=== PATIENT | female | born 1950 | race Caucasian/White ===

== ENCOUNTER 2024-12-20 22:57 | Inpatient (IN) | payer MEDICARE, SELFPAY ==
[2024-12-20] VITALS (13 sets, daily range): BP systolic 123–178; BP diastolic 63–108
--- NOTE | 2024-12-20 19:51 | ED.GENMED ---
History of Present Illness
General
Chief Complaint: Breathing Problem
Source: patient and ambulance crew
Time Seen by Provider: 12/20/24 19:50
History of Present Illness
History of Present Illness:
74-year-old female presents the emergency department in respiratory distress. She reportedly was at a restaurant with her , had not yet had anything to eat, did not have any episodes of choking or coughing, but began to feel suddenly short
of breath. I got a call from the medics on transport here and they reported that despite placing the patient on a nonrebreather and giving her DuoNebs, her maximum pulse ox was 86%. They requested permission to give Decadron which I granted
however ultimately it was not given on transport. EKG was transmitted to us, not consistent with NSTEMI. Upon arrival, patient is in moderate respiratory distress with tachypnea. History is limited from her but she specifically denies pain
including chest pain.
Past History
Past History
ED Past Medical History: None
ED Past Surgical History: None
Social History
Tobacco: Smoker
Alcohol: None
Drug: None
Personal:
Living: with family
Phy Exam
Physical Exam
Physical Exam:
GENERAL: Alert , in no apparent distress
EYE: pupils equal and reactive
NECK: Supple, no significant adenopathy.
ENT: o/p clr, mmm, no stridor/drool. no lip/tongue swelling.
CARDIAC: Regular rate and rhythm, tachycardic .
LUNGS: Equal breath sounds bilaterally,diffuse wheezing, no rhonchi/rales
ABDOMEN: Soft, without focal tenderness, no r/g
NEUROLOGICAL: Alert and oriented, no focal neuro deficits
SKIN: Warm and dry, skin intact.
MUSCULOSKELETAL: No edema, well perfused.
PSYCH: anxious
Scores
Heart Failure Risk
Heart Failure Risk Score: Not Applicable
Sepsis
Sepsis Screening
Sepsis Assessment: Sepsis Ruled Out
Sepsis Screen
Sepsis Screen: Sepsis Ruled Out
Date: 12/20/24
Time: 22:10
Course
Orders/Labs/Results
Orders:
Orders
12/20/24 19:46
Electrocardiogram (*1) Urgent
Reason for Study: Other
Other Reason for Exam: Respiratory Distress
Cardiac Monitoring- Treatment ONCE
EKG- Treatment ONCE
O2 Therapy [RESP] Urgent
Titrate/Wean O2 to maintain O2 sat greater than (%): 93
Special Instructions: TO MAINTAIN CONTINUOUS O2 SATS >/= 93%
Pulse Ox/cont/shift [RESP] Urgent
Quantity: 1
Special Instructions: continuous pulse ox
12/20/24 19:47
CR Chest Portable - 1 View Urgent
Comment:
Reason For Exam: respiratory distress
Reason Study Needs to be Portable: Patient Unstable
12/20/24 19:49
Dexamethasone Sod Phosphate [Decadron] 20 mg .ROUTE .STK-MED ONE
EPINEPHrine PF [Adrenalin] 1 mg .ROUTE .STK-MED ONE
12/20/24 19:50
Albuterol Sulfate [Ventolin Nebules] 7.5 mg INH R NOW STA
Dexamethasone Sod Phosphate [Decadron] 10 mg IV NOW STA
12/20/24 19:51
Complete Blood Count/With Diff Urgent
Comprehensive Metabolic Panel Urgent
NT-proBNP Urgent
Troponin I Urgent
12/20/24 20:25
Lactic Acid Q4H
Comment: CANCEL 2nd LACTIC ACID IF 1st LACTIC ACID IS LESS THAN 2
Blood Culture Q30M
ANNE MARIE Source: Blood/Venous
Specimen Description:
Blood Culture Q30M
ANNE MARIE Source: Blood/Venous
Specimen Description:
12/20/24 20:58
CT Chest PE Study Urgent
Comment:
Reason For Exam: resp distress
12/20/24 21:00
Aspirin 325 mg PO NOW STA
Furosemide [Lasix] 40 mg IV NOW STA
12/20/24 21:58
COVID-19 Antigen Stat
Source: Nasal Swab
Troponin I Stat
Influenza A+B Rapid Molecular Stat
ANNE MARIE Source: Nasal Swab
Specimen Description:
12/21/24 00:00
Lactic Acid Q4H
Comment: CANCEL 2nd LACTIC ACID IF 1st LACTIC ACID IS LESS THAN 2
Abnormal Lab Results
12/20/24 12/20/24
19:51 20:25
WBC 14.7 H 10^3/uL
(4.8-10.8)
RBC 3.75 L 10^6/uL
(4.20-5.40)
Hgb 11.5 L g/dL
(12.0-16.0)
Hct 34.8 L %
(37.0-47.0)
RDW 15.2 H %
(11.5-14.5)
MPV 11.1 H fL
(7.4-10.4)
Abs Immat Gran (auto) 0.1 H 10^3/uL
(0-0.05)
Absolute Neuts (auto) 6.7 H 10^3/uL
(1.4-6.5)
Absolute Lymphs (auto) 6.9 H 10^3/uL
(1.2-3.4)
Absolute Monos (auto) 0.8 H 10^3/uL
(0.1-0.6)
Carbon Dioxide 16 L mmol/L
(22-30)
BUN 20 H mg/dl
(7-17)
Glucose 363 H mg/dl
(70-99)
Lactic Acid 2.8 H mmol/L
(0.7-2.0)
Troponin I 0.045 H* ng/ml
12/20/24 19:51
12/20/24 19:51
Vital Signs
Initial and Last Documented VS:
Initial Vital Signs
Temp Pulse Resp BP Pulse Ox
98.4 F 126 30 162/92 96
12/20/24 20:01 12/20/24 20:01 12/20/24 20:01 12/20/24 20:01 12/20/24 20:01
Last Documented Vital Signs
Temp Pulse Resp BP Pulse Ox
98.4 F 122 30 165/77 96
12/20/24 20:01 12/20/24 21:56 12/20/24 20:01 12/20/24 21:56 12/20/24 20:01
*Critical Care Note
Total Time (30-74mins, 75-104mins- exclusive of procedures): 36
Update Note
Update Note:
Patient presents to the Emergency Department with resp distress
Number and Complexity of Problems Addressed at the Encounter
� Chronic conditions affecting care:
� Acute Exacerbation and/or Progression of Chronic Illness:
� Differential Diagnosis includes:but not limited to status ashtmaticus, allergic reaction, pna, pe, COPD exacerbation, acs etc etc.
Amount and/or Complexity of Data to be Reviewed and Analyzed
� I performed an independent evaluation of and my interpretation is:
EKG: Read by me, sinus tachycardia with PVCs, right bundle branch block, nonspecific ST abnormalities
CT:1. No evidence of pulmonary embolism.
2. There are small bilateral pleural effusions, more pronounced on the right. There is ground glass opacities with interlobular septal thickening and areas of confluent airspace disease which is favored to represent severe atelectasis/edema, less
likely multifocal pneumonia.
3. Moderate coronary artery calcifications
Xrays: Suspect pulmonary edema
Laboratory Studies: Elevated BNP, indeterminant troponin elevation, nonspecific leukocytosis although patient does not have signs to suggest infectious process, chills, cough, sore throat, rhinorrhea, etc. Mild anemia
Other:
� Review of other/old records reveals: None available
� Clinical information was obtained by an independent historian:
� Prescriptions/Medications Considered but not given:
� Further testing considered but not performed:
Risk of Complications and/or Morbidity or Mortality of Patient Management
� Social determinants of health affecting care:
� Discussion with other providers (PCP, Hospitalists, Consultants, etc):
� Escalation of care including admission/observation vs risk of discharge considered: Pt met by myself, RN's and resp tech upon arrival, bipap immeidately placed, pox 91% (improvement).
8:11 PM repeat assessment pulse ox is 96% on BiPAP patient is obviously much more comfortable, making jokes with me, etc. Diffuse wheezing persists. Will continue treatment while awaiting results of workup. Patient aware that she will be admitted
to the hospital.
9:01 PM boyfriend and son now at bedside. They states she was her usual self all day today. She was complaining of some mild back discomfort while in the car now since resolved. Then, upon arrival to the restaurant, patient became extremely
anxious associated with severe dyspnea and asked 911 to be called which is unusual for her. Patient is remarkably improved. Pulse ox is normal, mild sinus tachycardia, on repeat lung exam, wheezing diminished, appreciate bibasilar Rales. Suspect
pulmonary edema as etiology for her symptoms. Again denies chest pain, EKG does not show acute ischemic changes. Aspirin and Lasix ordered.
ED Attending Note
-
Portions of this chart may have been created with voice recognition software.� Occasional wrong word or��sound alike� substitutions may have occurred due to the inherent limitations of voice recognition software.
Discharge Plan
Departure
Patient Disposition: Admit
Date of Disposition: 12/20/24
Time of Disposition: 21:55
Admit to: Telemetry
Presentation/result/management discussed w/ accepting MD/DO: Hospitalist
Condition: Good
Discharge Problem:
Acute respiratory distress
Referrals:
Josue,Desmond J. Jr., DO [Family Provider] -
Interventions
Interventions:
*Risk Screen - Suicide Last Done: 12/20/24 20:01
*General Assessment Last Done: 12/20/24 20:01
*Neglect/Abuse Screening Last Done: 12/20/24 20:01
*ED- Fall Risk Assessment Last Done: 12/20/24 20:01
*ED COVID-19 Vaccine History Last Done: 12/20/24 20:01
Discharge Date and Time
Print Language: ALBANIAN
[2024-12-20] MEDS: DECADRON 10 MG IV (19:55)
[2024-12-20 20:13] LABS: ALT (SGPT) 16 U/L (0-35); AST (SGOT) 20 U/L (14-36); Albumin 4.2 g/dl (3.5-5.0); Alkaline Phosphatase 118 U/L (38-126); Blood Urea Nitrogen 20 mg/dl (7-17); Calcium 9.2 mg/dl (8.4-10.2); Carbon Dioxide 16 mmol/L (22-30); Chloride 105 mmol/L (98-107); Estimated Creatinine Clearance 66 ml/min; Glucose 363 mg/dl (70-99); Potassium 3.9 mmol/L (3.5-5.1); Sodium 137 mmol/L (135-145); Total Bilirubin 0.5 mg/dl (0.2-1.3); Total Protein 6.8 g/dl (6.3-8.2); eGFR > 60.00
[2024-12-20 20:27] LABS: Troponin I 0.045 ng/ml
[2024-12-20 20:30] LABS: % Basophils 0.5 % (0-2); % Eosinophils 1.2 % (0-6); % Immature Granulocytes 0.5 % (0-0.5); % Lymphocytes 47.1 % (20.5-51.1); % Monocytes 5.1 % (1.7-9.3); % Neutrophils 45.6 % (42.2-75.2); Absolute Basophils 0.1 10^3/uL (0-0.2); Absolute Eosinophils 0.2 10^3/uL (0-0.7); Absolute Immature Granulocytes 0.1 10^3/uL (0-0.05); Absolute Lymphocytes 6.9 10^3/uL (1.2-3.4); Absolute Monocytes 0.8 10^3/uL (0.1-0.6); Absolute Neutrophils 6.7 10^3/uL (1.4-6.5); Hematocrit 34.8 % (37.0-47.0); Hemoglobin 11.5 g/dL (12.0-16.0); Mean Corpuscular Hgb 30.7 pg (27.0-31.0); Mean Corpuscular Volume 92.8 fL (81.0-99.0); Mean Platelet Volume 11.1 fL (7.4-10.4); Nucleated Red Blood Cells % 0.2 %; Platelet Count 400 10^3/uL (130-400); Red Blood Cell Count 3.75 10^6/uL (4.20-5.40); Red Cell Dist. Width 15.2 % (11.5-14.5); White Blood Cell Count 14.7 10^3/uL (4.8-10.8)
[2024-12-20 20:44] LABS: NT-proBNP 5760 pg/ml
[2024-12-20 20:44] LABS: Lactic Acid 2.8 mmol/L (0.7-2.0)
[2024-12-20] MEDS: VENTOLIN NEBULES 7.5 MG INH (21:55)
[2024-12-20] MEDS: LASIX 40 MG IV (21:56)
[2024-12-20] MEDS: ASPIRIN 325 MG PO (21:56)
--- NOTE | 2024-12-20 22:07 | HPS.HSE ---
Family Physician
-
Family Physician: Desmond Salas
Chief Complaint
-
Acute shortness of breath shortness of breath shortness of breath
History of Present Illness
This is a 74-year-old with history of smoking and anxiety who presents to the emergency department with acute onset shortness of breath that started around 7 PM today.
Patient currently had a fall and back injury 2 weeks ago. This did not result in any significant mobility function. She was not hospitalized. She had no fractures and she was not immobilized. She has no recent travels. She denies any sick
contact. She has had no recent cough cold or flulike symptoms. She denies any lower extremity pain tenderness or swelling. She denies any redness in the lower extremities.
She denies any recent weight gain or weight loss. She denies any recent episodes of chest pain or shortness of breath. She denies exertional chest dyspnea at rest.
Apparently she was going to the night around 7 PM when she suddenly felt severely short of breath and nauseous but she did not vomit. She did not have any chest pain. She said her heart was racing but denied feeling dizzy or lightheaded.
She denies any prior history of CAD. Denies history of diabetes.
On arrival in the emergency department she was hypoxic with oxygen saturation of 86% on nonrebreather. She was immediately placed on BiPAP. Blood pressure was 162/92, pulse was 126, temp 98.4, current oxygen saturation 98% on 100% BiPAP.
Chest x-ray showed pulmonary edema to me. Troponin was elevated at 0.045, BNP was 5700.
White count was 14.7, hemoglobin and platelets were normal. Electrolytes were stable except for CO2 of 16 BUN and creatinine were normal at 20 and 0.8. Glucose was 363.
CT PE
IMPRESSION:
1. No evidence of pulmonary embolism.
2. There are small bilateral pleural effusions, more pronounced on the right. There is ground glass opacities with interlobular septal thickening and areas of confluent airspace disease which is favored to represent severe atelectasis/edema, less
likely multifocal pneumonia.
3. Moderate coronary artery calcifications
Medical History
Past Medical History
Past Medical History: Reports Psychiatric (Anxiety)
Past Surgical History: Reports None
Social History
Tobacco: Smoker
Alcohol: None
Drug: None
Personal: Partner
Living: With Family
Employment: Employed
Family History
Family History: Not pertinent
Allergies / Home Medications
Allergies reflects when Allergies were last updated in [facility].
Home Medications with original date entered in [facility]
Allergy/Medication List:
Allergies
Allergy/AdvReac Type Severity Reaction Status Date / Time
No Known Allergies Allergy Unverified 12/20/24 19:50
Review of Systems
-
History Source: Patient and Family
Constitutional: Reports No Symptoms
EENT: Reports No Symptoms
Respiratory: Reports Trouble Breathing
Cardiac: Reports No Symptoms
Abdomen/GI: Reports No Symptoms
: Reports No Symptoms
Musculoskeletal: Reports No Symptoms
Skin: Reports No Symptoms
Neurological: Reports No Symptoms
Endocrine: Reports No Symptoms
Hematologic/Lymphatic: Reports No Symptoms
Psych: Reports No Symptoms
Physical Exam
Vital Signs
Vital Signs
Temp Pulse Resp BP Pulse Ox
98.4 F 122 30 165/77 96
12/20/24 20:01 12/20/24 21:56 12/20/24 20:01 12/20/24 21:56 12/20/24 20:01
Physical Exam
General: Respiratory Distress
HEENT: NormoCephalic, Anicteric, Moist mucous membranes, Atraumatic, PERRLA and Oxygen
Respiratory: Rales and Crackles; No Wheezes
Cardiac: S1/S2 and Tachycardia
Breast: Deferred by me
GI: Soft, Non Tender, Non Distended and Normal Bowel Sounds
Rectal: Deferred by Provider
Genito-urinary: Deferred by me
Musculoskeletal: No Clubbing, No Cyanosis and No Edema
Neuro: AO x 3 and Nonfocal/grossly intact
Hematologic/Lymphatic: No Lymphadenopathy
Psych: Calm
Laboratory Results
-
12/20/24 19:51
12/20/24 19:51
Laboratory Results
Lactic Acid 2.8 mmol/L (0.7-2.0) H 12/20/24 20:25
Total Bilirubin 0.5 mg/dl (0.2-1.3) 12/20/24 19:51
AST 20 U/L (14-36) 12/20/24:
ALT 16 U/L (0-35) 12/20/24 19:51
Alkaline Phosphatase 118 U/L (38-126) 12/20/24 19:51
Troponin I 0.045 ng/ml H* 12/20/24 19:51
Data Reviewed
-
Diagnostic Radiology: Image Personally Visualized and interpreted
CT Scan: Report Reviewed by me
Medical Tests (Nuc Med, Echo, EKG etc): Image Personally Visualized and interpreted
Lab Data: Labs Reviewed by me
Impression/Plan
-
IMPRESSION:
74-year-old with history of anxiety and tobacco smoking presenting to the emergency department with acute shortness of breath and severe hypoxia requiring noninvasive positive pressure ventilation at 100% FiO2 currently satting 99%. Chest x-ray
shows pulmonary edema with trace effusion. She has no known history of CHF but BNP is elevated to 5700, troponin was 0.045. No chest pain currently and ECG is nonischemic. The very acute onset of symptoms are concerning for ischemic event. She
has a CT PE pending at this time. She improved markedly with BiPAP. Given elevated BNP and pulmonary edema concerning for flash pulmonary edema but the etiology is unclear at this time. There has been no antecedent cough wheezing shortness of
breath fevers or chills to suggest an acute infection.
PLAN:
1. Hypoxic respiratory distress - Suspect new onset CHF. No signs of acute infection
- admit to IMU
- start lasix 40 iv q 12
- CT PE negative for PE
- trending troponins, if rapid rise, will start heparin/asa for ACS/NSTEMI.
- If BP rises, will start nitroglycerin gtt
- continue bipap overnight
- echo in am for wall motion, valve and ef evaluation
- check viral panel
- holding abx for now
- will treat empirically with nebs for now, if not improved with diuresis consider inflammatory ggo and start prednisone and consult pulm
- hyperglycemia no knonw h/o HD, aspart achs for now, a1c in am
- cardiology consultation
[2024-12-20 22:32] LABS: COVID-19 Antigen Negative (Negative)
[2024-12-20 22:40] LABS: Troponin I 0.716 ng/ml
[2024-12-20 23:45] LABS: Procalcitonin 0.05 ng/ml (0.0-0.25)
[2024-12-21] VITALS (21 sets, daily range): BP systolic 80–177; BP diastolic 50–155; BMI 28.1
[2024-12-21] MEDS: HEPARIN 25000 UNITS/250 ML IV (00:42)
--- NOTE | 2024-12-21 01:24 | PTCARENOTE ---
Received pt from ED RN. Pt is AAOx3. Sinus tach on the monitor. Pt brought up on bipap, O2 sat 95%. RT removed bipap and placed pt on 3L NC O2 sat 93%, lungs coarse/diminished. Pw in place, education provided, this RN stated we can take the pw out
and walk to the BR, pt would like to keep pw in overnight. Labs and Heparin gtt started at 1000 units/hr (see worklist). CHG bath provided. Family at bedside. Call pitts in reach. Safe environment maintained.
[2024-12-21 01:26] LABS: APTT 24.4 Sec (23.4-35.0)
[2024-12-21 01:30] LABS: Lactic Acid 2.3 mmol/L (0.7-2.0)
[2024-12-21 01:32] LABS: Hematocrit 30.1 % (37.0-47.0); Hemoglobin 10.6 g/dL (12.0-16.0); Mean Corp Hgb Conc. 35.2 g/dL (33.0-37.0); Mean Corpuscular Hgb 31.5 pg (27.0-31.0); Mean Corpuscular Volume 89.3 fL (81.0-99.0); Mean Platelet Volume 11.4 fL (7.4-10.4); Platelet Count 251 10^3/uL (130-400); Red Blood Cell Count 3.37 10^6/uL (4.20-5.40); White Blood Cell Count 17.5 10^3/uL (4.8-10.8)
[2024-12-21 05:33] LABS: Lactic Acid 1.1 mmol/L (0.7-2.0)
[2024-12-21 05:37] LABS: APTT 49.6 Sec (23.4-35.0)
[2024-12-21 05:40] LABS: Hematocrit 29.5 % (37.0-47.0); Hemoglobin 10.5 g/dL (12.0-16.0); Mean Corp Hgb Conc. 35.6 g/dL (33.0-37.0); Mean Corpuscular Hgb 31.2 pg (27.0-31.0); Mean Corpuscular Volume 87.5 fL (81.0-99.0); Mean Platelet Volume 11.5 fL (7.4-10.4); Platelet Count 275 10^3/uL (130-400); Red Blood Cell Count 3.37 10^6/uL (4.20-5.40); Red Cell Dist. Width 14.8 % (11.5-14.5); White Blood Cell Count 13.1 10^3/uL (4.8-10.8)
[2024-12-21 05:59] LABS: Blood Urea Nitrogen 20 mg/dl (7-17); Calcium 9.4 mg/dl (8.4-10.2); Carbon Dioxide 21 mmol/L (22-30); Chloride 110 mmol/L (98-107); Estimated Creatinine Clearance 86 ml/min; Glucose 141 mg/dl (70-99); HDL Cholesterol 58 mg/dl; LDL Cholesterol, Calculated 163 mg/dl; Magnesium 1.9 mg/dl (1.6-2.3); Phosphorus 4.4 mg/dl (2.5-4.5); Potassium 4.5 mmol/L (3.5-5.1); Sodium 139 mmol/L (135-145); Total Cholesterol 232 mg/dl (50-199); Triglyceride 55 mg/dl (10-149); Very Low Density Lipoprotein 11 mg/dl (0-30); eGFR > 60.00
[2024-12-21 06:30] LABS: TSH Reflex To Free T4 1.48 uIU/ml (0.47-4.68)
[2024-12-21 07:55] LABS: Glucose - Point of Care 127 mg/dl (70-99)
[2024-12-21] MEDS: NOVOLOG FLEXPEN-LOW RESISTANCE SC ×2 (08:21→12:36)
[2024-12-21] MEDS: DUONEB 3 ML INH ×2 (08:22→15:58)
--- NOTE | 2024-12-21 08:45 | W.PN.HOSP.TC ---
Today's Communication/Plan
-
transfer to IVU
await cards
cont diuresis
needs ECHO/cardiac cath
renew IV heparin
start asa/statin
Assessment / Plan
Assessment / Plan
pt is a 74 year old female
Hypoxic respiratory distress--Suspect new onset CHF, type unknown-- doubt infection--transfer to IVU--cont IV lasix, may need to increase dose as still with crackles on exam--CT scan neg for PE--await cards--needs echo/cardiac cath
presumed NSTEMI--troponins rising (0.045, 0.71, 16.9)--have not peaked yet--cont to trend-- IV heparin--will need echo and cath--await cards input
HLD--T chol 232, LDL 163--start statin
lactic acidosis likely due to poor perfusion--do NOT believe septic or infected--no ABX--leukocytosis likely reactive
hyperglycemia-- no hx of DM--check HGB C6T--VBV
anxiety--cont xanax
DVT proph--on IV heparin drip
code status-- FULL CODE
Anticipated Discharge: > 48 hours
Subjective/Interval History
-
Date of Service: December 21, 2024
Patient feeling much improved
a little anxious asking for Xanax
Objective Data
-
Labs:
Laboratory Results
12/21/24 12/21/24 12/21/24
00:36 05:11 05:12
WBC 17.5 H 13.1 H
Hgb 10.6 L 10.5 L
Hct 30.1 L 29.5 L
Plt Count 251 D 275
APTT 24.4 49.6 H
Sodium 139
Potassium 4.5
Chloride 110 H
Carbon Dioxide 21 L
BUN 20 H
Creatinine 0.6
Glucose 141 H
Calcium 9.4
12/21/24 12/21/24
06:50 11:40
WBC
Hgb
Hct
Plt Count
APTT Cancelled Pending
Sodium
Potassium
Chloride
Carbon Dioxide
BUN
Creatinine
Glucose
Calcium
Vital Signs:
max temp for 24 hours
12/21/24
03:30
Temp 98.4 F
Vital Signs
Temp Pulse Resp BP Pulse Ox
97.9 F 115 18 124/101 94
12/21/24 08:20 12/21/24 08:25 12/21/24 08:25 12/21/24 06:00 12/21/24 08:25
I&O
12/20/24 12/21/24 12/22/24
06:59 06:59 06:59
Intake Total 472 / 472
Output Total 550 / 550
Balance -78 / -78
Review of Systems
-
All other systems: Reviewed and negative
Respiratory: Denies Trouble Breathing
Cardiac: Denies Chest Pain
Psych: Reports Anxious
Physical Exam
-
General: Well Developed, Well Nourished and No Apparent Distress
HEENT: Normocephalic and Atraumatic; Negative Oxygen
Respiratory: Crackles (all lung rios)
Cardiac: Regular Rhythm and S1/S2; Negative Murmur
GI: Soft, Nontender, Nondistended and Normal Bowel Sounds
Musculoskeletal: No Clubbing, No Cyanosis and No Edema
Skin: Warm
Neuro: Awake and Alert
Psych: Anxious
--- NOTE | 2024-12-21 09:00 | PTCARENOTE ---
Rec'd pt at 0800 awake alert and oriented resting in bed. Does admit to feeling anxious and states she normally takes Xanax 0.25 mg tid as needed. Denies pain and overall states breathing feels better. Speech is clear. Denies dizziness or headache.
FRIAS. Respirs are overall non-labored on RA with sats of 93%. BS with fine scattered crackles throughout. No cough noted. Monitor ST. VS as documented. + pulses. No edema. Denies chest pain. IV Heparin gtt infusing at 1200 units/hr via R AC IV site.
Capped int intact R forearm. ABd is soft with + BS. Purewick in place and pt voiding yellow urine. Pt able to turn and reposition herself. Plan of care reviewed with pt and s/o. Call pitts in reach. Dr. Dee in to see pt.
--- NOTE | 2024-12-21 09:16 | CON.CAR ---
Addendum entered and electronically signed by Mary Sidhu MD 12/21/24 11:42:
I saw and examined the patient.
The Combination Man's note was reviewed and I agree with the note.
Comment: Patient critically ill with extremis and presented with Heart failure and a acute anteroseptal [place]. Troponins increasing today. Patient currently stable after diuresis, heparin and medical stabilization. Initially required BiPAP.
Reviewed at length with patient, her and her son at the bedside. Emergent echocardiogram also requested. She has multiple cardiovascular risk factors including likely hypertension, diabetes and hyperlipidemia.
According to patient dyspnea on exertion with stuttering for 3 weeks with walking to her car but then worsened on presentation. She is a difficult historian and that she does not offer much about her history. She does not appear to follow
regularly with physicians.
General: Well developed, well nourished in NAD.
Heart: Distant heart sounds 2/6 basal systolic murmur
Lungs: Decreased breath sounds at the bases
Extremities: No clubbing, cyanosis or edema bilaterally.
Neuro: Grossly nonfocal, awake, alert
Impression:
Acute anteroseptal [place]
Heart failure with reduced ejection fraction in the setting of acute coronary event
Aortic valve stenosis likely mild (echo preliminary)
Tobacco use disorder
Hyperlipidemia
Hypertension
Plan:
Initially I saw the patient and discussed hypothetically going to the [facility] today or Monday pending further results of EKG and echocardiogram.
As noted in update note [facility] activated discussed with interventional cardiology
Discussed with physician from primary service and nursing
Telemetry reviewed and stable
EKG yesterday and today independently reviewed by me
Labs reviewed
Continue IV heparin
Continue Lasix
Await echocardiogram for further treatment of heart failure
Smoking cessation is mandatory
All questions from patient's and son answered at the bedside.
35 minutes total critical care time
Original Note:
Consultation
Consultation Request
Date/Time Consultation Performed: 12/21/24
Requesting Provider: Dr. Dee
Performing Provider: Christina Day PA-C for Dr. Mary Sidhu
Reason for Consultation: CHF, NSTEMI
Medical History
-
Chief Complaint: SOB
History of Present Illness:
Patient is a 74-year-old female with past medical history of anxiety and tobacco use who presented to [facility] due to worsening shortness of breath last evening. She states she has noted intermittent dyspnea on exertion for the last
several weeks, which got significantly worse last evening. On arrival she was hypoxic and initially required BiPAP, now weaned. proBNP elevated at 5760 and imaging with evidence of acute heart failure. Initial troponin also elevated at 0.04 now
up to 16.9. No chest pain. EKG ST with concern for possible ST elevation in anterior leads. Chest CT negative for PE but with small B/L pleural effusions and mod coronary calcifications noted.
PMH:
Anxiety
Tobacco use
Past Medical History
Past Medical History: Other (in HPI)
Social History
Tobacco: Smoker
Alcohol: Occasional (several drinks per day on weekend)
Personal:
Living: With Family
Employment: Retired
Family History
Family History: Reviewed & Not Pertinent
Allergies / Home Medications
Allergy/AdvReac Type Severity Reaction Status Date / Time
No Known Allergies Allergy Unverified 12/20/24 19:50
�Medication �Instructions �Recorded �Confirmed �Type
alprazolam 0.25 mg tablet (Xanax) 0.25 mg PO TID PRN anxiety 12/21/24 12/21/24 History
Review of Systems
-
History Source: Patient and Family
All other systems: Negative unless noted
Physical Exam
Vital Signs
Temp Pulse Resp BP Pulse Ox
97.9 F 115 18 124/101 94
12/21/24 08:20 12/21/24 08:25 12/21/24 08:25 12/21/24 06:00 12/21/24 08:25
Lab Results
12/21/24 05:12
12/21/24 05:11
Troponin I 16.900 ng/ml H* D 12/21/24 05:12
Pmc-J-Dovangxzdrr Pept 5760 pg/ml 12/20/24 19:51
Physical Exam
General: No Apparent Distress and Comfortable
HEENT: Normocephalic, Anicteric and Moist Mucous Membranes
Respiratory: Crackles and Non Labored Respirations
Cardiac: S1/S2, Regular Rhythm and Other (tachycardic)
GI: Soft, Non Tender, Non Distended and Normal Bowel Sounds
Musculoskeletal: No Clubbing, No Cyanosis and No Edema
Skin: Warm and Dry
Neuro: AO x 3
Impression / Plan
-
[employer] Special Stocks: none prior to admission
Assessment:
Presentation with SOB
Acute hypoxic respiratory failure, required bipap on arrival
Acute CHF, unknown type
NSTEMI
Lactic acidosis
Hyperglycemia
Anemia
HLD
Anxiety
Tobacco use
ECHO 12/21/24: pending
Plan:
- Patient presented to ER with shortness of breath initially hypoxic and requiring BiPAP
- proBNP 5760. continue diuresis with IV lasix. Cr stable. was not on diuretic prior to admission
- CHF education
- Trops uptrending, most recent 16.9. trend to peak
- No CP
- EKG ST with possible ST elevations noted. repeat EKG now
- check urgent echo, d/w metallurgical technician
- continue IV heparin, asa
- concern for cardiogenic shock with elevated lactic acidosis, sinus tachycardia
- may require urgent cardiac cath
- consider addition of arb vs arni pending EF by echo
- hold off on BB for now, but eventually will start
- LDL 163. start lipitor 80mg QPM
- hgbA1c pending
- work up of anemia per primary service
- advised tobacco cessation, as well as ETOH cessation
- d/w patient and at bedside
Data Reviewed
-
EKG: Tracing Personally Visualized and interpreted
Radiology: Report Reviewed by me
Labs: Labs Reviewed by me
Old Records: Reviewed
[2024-12-21] MEDS: XANAX 0.25 MG PO ×3 (09:22→22:16)
--- NOTE | 2024-12-21 09:30 | PTCARENOTE ---
AM meds including PO Xanax 0.25 mg PO given. Lasix 40 mg IV given as ordered. Ready to eat breakfast. No other changes.
[2024-12-21] MEDS: LOW STRENGTH ASPIRIN 81 MG PO (09:31)
[2024-12-21] MEDS: LASIX 40 MG IV ×3 (09:32→16:10)
--- NOTE | 2024-12-21 10:02 | PTCARENOTE ---
Ate some breakfast. No complaints currently. States that she feels like the Xanax is working. ECG done and Dr. Sidhu in to see pt. VS as documented.
[2024-12-21 10:15] LABS: Iron 51 ug/dl (37-170)
[2024-12-21 10:19] LABS: Reticulocyte Count 2.5 % (0.4-2.8)
[2024-12-21 10:25] LABS: Percent Saturation 14 % (20-50); Total Iron Binding Capacity 343 ug/dl (265-497)
--- NOTE | 2024-12-21 11:00 | PTCARENOTE ---
Sats at times running 88-90% on RA- No complaints from pt. Placed on 1l nc with sats up to 94%
--- NOTE | 2024-12-21 11:07 | PTCARENOTE ---
ECHO being done currently. No other changes. States she feels more relaxed
--- NOTE | 2024-12-21 11:42 | W.PN.UPDATE ---
Update Note
Progress Note Update
Once again went to patient's bedside. Echocardiogram tech at bedside. Reviewed preliminary images of echocardiogram at bedside with LAD wall motion abnormality and ejection fraction likely significantly depressed at 35%.
Await full echo images to review.
Discussed with interventional cardiology and given acute anteroseptal IN will proceed to the cardiac Marketing And Development Coordinator today. Risks and benefits discussed with the patient.
I was able then to find patient's son in the hallway and we had a discussion and he is agreeable with plan. Many questions asked and answered regarding treatment/evaluation options. He thanked me for my help.
I also notified primary service.
Additional 30 minutes critical care time coordinating care with nursing, echocardiogram tech at bedside, meeting with family, secure texting with interventional cardiology and discussion with patient.
[2024-12-21 11:50] LABS: Glucose - Point of Care 127 mg/dl (70-99)
[2024-12-21 12:00] LABS: APTT 51.7 Sec (23.4-35.0)
--- NOTE | 2024-12-21 12:00 | PTCARENOTE ---
Report given to slab inspector. Pt for cardiac cath. Consent signed
--- NOTE | 2024-12-21 12:13 | PTCARENOTE ---
CHG bath given. Pt sent to catheter finisher and inspector via bed on 1L O2 with sats of 95%. VS as documented. No c/o pain. Labs sent at 1140 as ordered. Heparin gtt turned off at catheter finisher and inspector request. Family at the bedside.
--- NOTE | 2024-12-21 12:40 | PTCARENOTE ---
Report given to IVU staff
[2024-12-21 13:54] LABS: Glycohemoglobin (HgbA1c) 5.1 % (4.0-5.6)
[2024-12-21 14:01] LABS: Vitamin B12 427 pg/ml (239-931)
--- NOTE | 2024-12-21 14:24 | ITS.CL.ANGIO ---
Household Refrigeration Mechanic - Angioplasty
Angioplasty
Procedure Report:
CARDIAC CATHETERIZATION REPORT
Date of Procedure: 12/21/2024
Referring: Mary Sidhu M.D.
Indication: Delayed presentation of ST elevation myocardial infarction versus high risk NSTEMI, new cardiomyopathy.
PROCEDURE:
1. Right heart catheterization.
2. Coronary angiography.
3. Left heart catheterization.
4. Left ventriculogram.
5. Successful IVUS of the left main coronary artery.
6. Successful IVUS of the proximal and mid left anterior descending artery.
7. Successful IVUS of the proximal left circumflex artery.
8. Intracoronary lithotripsy of the proximal left anterior descending artery.
9. Successful PCI of the proximal LAD.
A total of 90 minutes of procedural/moderate sedation was utilized. An independent medical and health services manager was present to assist with and help manage the patient's level of consciousness and physiologic status.
ACCESS:
1. 6 [place] right radial artery using a modified Seldinger technique.
2. 6 [place] right antecubital vein using a previously placed IV.
CATHETERS:
1. 5 [place] 90 cm thermodilution balloon wedge.
2. 5 [place] JL 3.5
3. 5 [place] JR4.
4. 6 [place] JL 3.5 guiding catheter.
HEMODYNAMIC DATA
Weight (kg): 78.5
AO (s/d/x, mmHg): 134/61/93
LV (s/x, mmHg): 136/24 (A wave to 38)
PCWP (a/v/x, mmHg): 28/28/24
PA (s/d/x, mmHg): 40/25/30
RV (s/x, mmHg): 40/8
RA (a/v/x, mmHg): 08/21/
SVC SvO2 (%): 60.2
IVC SvO2 (%): Not obtained.
RA SvO2 (%): Not obtained.
RV SvO2 (%): Not obtained.
PA SvO2 (%): 52.8
SaO2 (%): 91.8
Hbg (g/dL): 10.5
MAGDALENE
CO (L/min): 4.35
CI (L/min/m2): 2.31
Thermodilution
CO (L/min): Not performed.
CI (L/min/m2): Not performed.
TPG (mmHg): 6
PVR (Haji Units): 1.38
SVR (dynes*seconds*cm^-5): 1563
AVO2 Diff (Volume %): 5.57
AV gradient (x, mmHg): None.
AV area (cm2): Normal.
MV gradient (x, mmHg): Not obtained.
MV area (cm2): Not obtained.
LEFT VENTRICULOGRAPHY: Performed in an RAM projection. Mild to moderately dilated left ventricle with severe hypokinesis of the entire myocardium with the exception of the anterior base and dyskinesis of the apex with severely reduced systolic
function. Left ventricular ejection fraction estimated at 20-25%. There is no mitral valve regurgitation. There is no aortic valve insufficiency. The aortic root, visualized ascending aorta and descending thoracic aorta appear normal.
AORTOGRAPHY: Not performed.
CORONARY ANGIOGRAPHY
Dominance: Right.
Left Main: Normal size, bifurcating vessel that is mild to moderately diseased throughout.
LAD: Normal size vessel giving rise to several small to medium size diagonals. There is a 40% lesion in the ostium followed by a densely calcified 80% lesion which spans the origin of at least one of the diagonals. There are dense luminal
irregularities throughout the remainder of the vessel.
Ramus: Congenitally absent.
Circumflex: Large size, nondominant vessel that gives rise to 2 significant obtuse marginals. There are luminal irregularities throughout the entire vessel including a 40% lesion in the ostium of the vessel.
RCA: Normal size, dominant vessel. The vessel is chronically totally occluded at its origin and is robustly collateralized by the LAD and circumflex.
INTERVENTIONS
1. Successful IVUS of the left main coronary artery demonstrating atherosclerotic disease but minimal luminal area >6 mmHg throughout.
2. Successful IVUS of the proximal and mid LAD demonstrating severe, densely calcified atherosclerotic disease in the proximal vessel.
3. Successful IVUS of the proximal circumflex demonstrating atherosclerotic disease in the ostium of the vessel, sparing the distal left main coronary artery.
4. Successful intracoronary lithotripsy of the 80% proximal LAD lesion (Shockwave 3.5 x 12 lithotripsy balloon) with good expansion.
5. Successful PCI of the 80% proximal LAD lesion extending into the mid LAD (Medtronic [place] Ector 3.5 x 34 TERA, postdilated with a 3.5 NC balloon throughout) with reduction in stenosis to 0%, maintaining TAYLOR-3 flow.
Narrative:
The decision was made to perform intracoronary imaging. The diagnostic catheter was removed over a wire and exchanged for 6 [place] JR 3.5 guiding catheter. The guiding catheter was advanced into the ascending aorta and seated in the left main
coronary artery. Additional heparin was given to obtain an ACT greater than 250 seconds. After crossing the lesion with a coronary wire into the distal LAD, an IVUS catheter was advanced through the guiding catheter and into the ostium of the
artery. Ring down was performed once the imaging crystal was no longer inside of the guiding catheter. The IVUS catheter was advanced into the mid LAD. Intravascular ultrasound was performed in a retrograde fashion using a slow pullback.
Intracoronary imaging demonstrated severe atherosclerotic disease with dense calcification in the proximal and mid LAD. There was moderate, diffuse atherosclerotic disease throughout the entire left main coronary artery but no discrete stenosis.
Attention was paid to the ostium of the vessel given catheter dampening. The entire length of the left main coronary artery measured >6 mm� in luminal area. The wire was redirected into the circumflex and IVUS was advanced into the proximal
circumflex vessel. IVUS was performed in retrograde fashion demonstrating moderate, diffuse atherosclerotic disease in this vessel as well with a discrete lesion in the proximal/ostial margin. Minimal luminal area was >5 mm�, consistent with
nonocclusive stenosis. Vessel measurements were taken and all vessels, notably the LAD for intervention planning.
Based on the calcification seen on angiography as well as confirmed on IVUS, it was clear that plaque modification would be necessary to ensure stent expansion and adequate intervention. A BMW wire was advanced into the distal LAD and the power
turn flex wire was maintained in place for protection of the circumflex. A Shockwave 3.5 x 12 coronary lithotripsy balloon was advanced over the wire and into the proximal LAD lesion. The balloon was sterilely connected to the controller and
prepped to negative pressure. Meticulous care was taken while positioning the shockwave balloon. Once in satisfactory position, the balloon was inflated to 4 gerhard. After confirming good contact with the vessel wall, 10 pulses were delivered.
After delivering 10 pulses, the balloon was inflated to 6 gerhard then deflated. The entire lesion was treated in a similar manner for total of 6 rounds.
The Shockwave balloon was removed and a Medtronic [place] Ector 3.5 x 34 drug-eluting stent was advanced. Unfortunately, the stent would not advance past the 80% lesion and spite of previous plaque modification. The stent was withdrawn and a
GuideLiner was advanced over both wires. A 3.0 x 15 semicompliant balloon was advanced into the lesion and the distal margin of the lesion was dilated to 12 gerhard. The balloon was pulled back to the proximal portion of the lesion. In order to
facilitate GuideLiner advancement, the power turn flex wire was pulled back into the GuideLiner, the proximal lesion was treated with the semicompliant balloon to 14 gerhard, the balloon was deflated and sheath with the GuideLiner entering the LAD with
relative ease. The semicompliant balloon was withdrawn and the stent was readvanced, this time passing into the LAD without difficulty. The GuideLiner was pulled back into the left main coronary artery and the power turn flex wire was readvanced
into the circumflex to maintain protection prior to stent deployment. Meticulous care was taken while positioning the stent, ensuring that the distal edge of the stent covered the entire lesion while the proximal margin of the stent covered the 80%
lesion but did not intrude into the left main coronary artery. When we were satisfied with our position, the stent was deployed at 12 atmospheres. The stent balloon was removed. A 3.5 x 20 noncompliant balloon was advanced into the stent and the
stent was postdilated to 15 atmospheres.
IVUS was repeated after the noncompliant balloon had been withdrawn, confirming good stent expansion and apposition. Of note, the 40% lesion in the ostium of the LAD was not covered by the stent by intention but had a minimal luminal area
consistent with nonflow limiting stenosis, thus avoiding compromise of the left main coronary artery or circumflex.
Angiography was performed in orthogonal views, confirming good stent expansion and an excellent angiographic result. The coronary wire was withdrawn and the guide was disengaged from the artery. The catheter was removed over a standard J-wire.
Closure Device: Vascular band for the right radial artery, manual pressure for the right antecubital vein.
Radiation dose (mGy): 2147.63
DAP (cm2.Gy): 158.48
Fluoroscopy time (minutes): 29.7
CONCLUSIONS:
1. Right dominant circulation with chronic total occlusion of the proximal RCA supplied by collaterals of the LAD and circumflex, moderate diffuse disease throughout the entire left main with dampening on catheter engagement, likely due to
angulation, a 40% ostial LAD lesion, a 40% ostial circumflex lesion and a densely calcified 80% lesion in the proximal LAD spanning the origin of at least one of the diagonals and extending into the mid LAD, status post successful IVUS guided
intracoronary lithotripsy (shockwave 3.5 x 12 lithotripsy balloon) and PCI (Medtronic Ady Ector 3.5 x 34 TERA, postdilated with a 3.5 NC balloon) with reduction in stenosis to 0%, maintaining TAYLOR-3 flow.
2. Mild to moderate left ventricular dilation with severe hypokinesis of the entire myocardium with the exception of the anterior base and dyskinesis of the apex with severely reduced systolic function. Left ventricular ejection fraction estimated
at 20-25%.
3. Severely elevated filling pressures (LVEDP = 24 mmHg, PCWP = 24 mmHg at 78.5 kg) with evidence of diastolic dysfunction (A wave to 38 mmHg).
4. Preserved cardiac index (2.31 L/min/m�).
5. Mild postcapillary pulmonary hypertension (mean PA = 30 mmHg, PCWP = 24 mmHg, CO = 4.35 L/min, PVR = 1.38 Haji units), WHO group 2.
RECOMMENDATIONS:
1. Expectant management after cardiac catheterization via right radial approach.
2. Limited weight bearing on the right wrist for one week.
3. Dual antiplatelet therapy with aspirin and ticagrelor for at least 12 months, followed by aspirin indefinitely.
4. Aggressive secondary prevention with high-dose, high potency statin.
5. OMT/GDMT as hemodynamics will tolerate.
6. Absolute smoking abstinence.
7. Referral to cardiac rehab.
Copy to: Mary Sidhu M.D.
Jose Armando Dong DO, FACC, FACP
--- NOTE | 2024-12-21 15:09 | PTCARENOTE ---
Rec'd Pt from oil laboratory analyst, A,A+Ox3. denies pain. R radial band in place, + radial pulse. R brachial dsg D+I.
[2024-12-21 15:24] LABS: Folate 12.3 ng/ml (2.76-20)
[2024-12-21 16:20] LABS: Glucose - Point of Care 187 mg/dl (70-99)
[2024-12-21] MEDS: NOVOLOG FLEXPEN-LOW RESISTANCE 1 UNITS SC (16:49)
--- NOTE | 2024-12-21 17:20 | PTCARENOTE ---
1500 Pt requesting xanax for anxiety. Xanax is not in pyxis currently on IVU, pharmacist notified and will sent dose. Med with xanax 0.25 mg po as ordered at 1525. 1545 Pt c/o dyspnea, she states she feels 'very anxious and can't get my breath'. O2
sat 92% on RA, Pt placed on O2 at 2L/min.HR 130's, BP elevated 165/84. Dr Dee notified. Pt med with additional dose of IV Lasix 40 mg and neb tx ordered. Fan brought in for Pt and she was given a cool compress for her forehead, shortly after
this and after neb tx, pt started to feel calm again. HR 114, BP 114/72. She has had no further episodes.
[2024-12-21] MEDS: LIPITOR 80 MG PO (17:32)
--- NOTE | 2024-12-21 17:47 | CM ---
Alert awake oriented patient who lives alone oin a condo with 13 steps to enter. She is independent in activates of daily living.She does drive .
no adaptive devices
No VN in past . No SNF hx
Pharmacy [place]
PCP Dr Salas
PLAN Home with no needs
[2024-12-21] MEDS: TYLENOL 650 MG PO (18:22)
--- NOTE | 2024-12-21 18:27 | PTCARENOTE ---
PT c/o general body aches, med with Tylenol 650 mg po as ordered.
[2024-12-21] MEDS: BRILINTA 90 MG PO (19:29)
[2024-12-21] MEDS: COREG 3.125 MG PO (19:30)
[2024-12-21 21:40] LABS: Glucose - Point of Care 113 mg/dl (70-99)
--- NOTE | 2024-12-21 22:05 | PTCARENOTE ---
Received pt at change of shift resting in bed comfortably. Sinus tach with occasional PVCs on the monitor, HR 103. Denies any pain or SOB. On 1L O2. SpO2 96%. Right radial and right brachial sites clean, dry, and intact. Positive pulses. No bleeding
or hematoma noted. Educated pt on activity restrictions post cath. pt verbalized understanding. Heart failure book provided. pt informed of fluid restriction. Call pitts within reach.
[2024-12-22] VITALS (8 sets, daily range): BP systolic 90–136; BP diastolic 54–71; BMI 27.2
[2024-12-22 03:54] LABS: Hematocrit 26.5 % (37.0-47.0); Hemoglobin 9.4 g/dL (12.0-16.0); Mean Corp Hgb Conc. 35.5 g/dL (33.0-37.0); Mean Corpuscular Hgb 31.3 pg (27.0-31.0); Mean Corpuscular Volume 88.3 fL (81.0-99.0); Mean Platelet Volume 11.4 fL (7.4-10.4); Platelet Count 238 10^3/uL (130-400); Red Cell Dist. Width 15.3 % (11.5-14.5); White Blood Cell Count 10.3 10^3/uL (4.8-10.8)
[2024-12-22 04:16] LABS: ALT (SGPT) 26 U/L (0-35); AST (SGOT) 62 U/L (14-36); Albumin 3.1 g/dl (3.5-5.0); Alkaline Phosphatase 82 U/L (38-126); Blood Urea Nitrogen 21 mg/dl (7-17); Carbon Dioxide 25 mmol/L (22-30); Chloride 105 mmol/L (98-107); Estimated Creatinine Clearance 57 ml/min; Glucose 114 mg/dl (70-99); Magnesium 1.9 mg/dl (1.6-2.3); Potassium 3.6 mmol/L (3.5-5.1); Sodium 135 mmol/L (135-145); Total Bilirubin 1.1 mg/dl (0.2-1.3); Total Protein 5.5 g/dl (6.3-8.2); eGFR > 60.00
[2024-12-22 04:42] LABS: TSH Reflex To Free T4 7.24 uIU/ml (0.47-4.68)
[2024-12-22 05:11] LABS: Free T4 1.39 ng/dl (0.78-2.19)
[2024-12-22 08:56] LABS: Glucose - Point of Care 116 mg/dl (70-99)
[2024-12-22] MEDS: TYLENOL 650 MG PO (08:58)
[2024-12-22] MEDS: XANAX 0.25 MG PO ×2 (08:58→22:31)
[2024-12-22] MEDS: ALDACTONE 12.5 MG PO (08:59)
[2024-12-22] MEDS: LOW STRENGTH ASPIRIN 81 MG PO (08:59)
[2024-12-22] MEDS: COREG 3.125 MG PO ×2 (09:00→19:25)
[2024-12-22] MEDS: BRILINTA 90 MG PO ×2 (09:00→19:25)
[2024-12-22] MEDS: NOVOLOG FLEXPEN-LOW RESISTANCE SC ×3 (09:04→16:50)
--- NOTE | 2024-12-22 10:54 | W.PN.HOSP.TC ---
Today's Communication/Plan
-
hopeful d/c tomorrow
need outpt lasix dose
cont lipitor 80, coreg, asa, brilinta
Assessment / Plan
Assessment / Plan
pt is a 74 year old female
Hypoxic respiratory distress--Suspect new onset CHF, systolic by ECHO and cath-- doubt infection--transfer to IVU--cont IV lasix--CT scan neg for PE--apprec cards--echo with EF visually 35% but 20-25% via cath
ACS/STEMI (EKG with ST elevations in V1,V2)--troponins rising (0.045, 0.71, 16.9 peak, now 12.7)---- stop IV heparin--apprec cards--cath showed Right dominant circulation with chronic total occlusion of the proximal RCA supplied by collaterals of
the LAD and circumflex, moderate diffuse disease throughout the entire left main with dampening on catheter engagement, likely due to angulation, a 40% ostial LAD lesion, a 40% ostial circumflex lesion and a densely calcified 80% lesion in the
proximal LAD spanning the origin of at least one of the diagonals and extending into the mid LAD, status post successful IVUS guided intracoronary lithotripsy (shockwave 3.5 x 12 lithotripsy balloon) and PCI (Medtronic [place] 3.5 x 34 TERA,
postdilated with a 3.5 NC balloon) with reduction in stenosis to 0%--asa, Brilinta, high dose statin, coreg at d/c--will need to transition to oral lasix--stopped IV heparin
HLD--T chol 232, LDL 163--started statin
lactic acidosis likely due to poor perfusion--do NOT believe septic or infected--no ABX--leukocytosis likely reactive
hyperglycemia-- no hx of DM--HGB A1C 5.1--SSI
anxiety--cont xanax
DVT proph--off heparin drip
code status-- FULL CODE
Anticipated Discharge: Within 24 hours
Subjective/Interval History
-
Date of Service: December 22, 2024
pt doing ok--hopeful d/c tomorrow
Objective Data
-
Labs:
Laboratory Results
12/22/24
03:20
WBC 10.3
Hgb 9.4 L
Hct 26.5 L
Plt Count 238
Sodium 135
Potassium 3.6
Chloride 105
Carbon Dioxide 25
BUN 21 H
Creatinine 0.8
Glucose 114 H
Calcium 9.0
Total Bilirubin 1.1
AST 62 H
ALT 26
Alkaline Phosphatase 82
Vital Signs:
max temp for 24 hours
12/20/24
20:01 12/22/24
03:28 12/22/24
06:50
Temp 98.8 F
Actual Weight 82 kg 76.5 kg
Vital Signs
Temp Pulse Resp BP Pulse Ox
98.8 F 91 20 122/63 91
12/22/24 06:50 12/22/24 09:01 12/22/24 06:50 12/22/24 09:01 12/22/24 06:50
I&O
12/21/24 12/22/24 12/23/24
06:59 06:59 06:59
Intake Total 472 / 484 1190 / 1190
Output Total 550 / 550 2810 / 2810
Balance -78 / -66 -1620 / -1620
Review of Systems
-
All other systems: Reviewed and negative
Physical Exam
-
General: Well Developed, Well Nourished and No Apparent Distress
HEENT: Normocephalic and Atraumatic
Respiratory: Clear to Auscultation; Negative Wheezes or Rhonchi
Cardiac: Regular Rhythm and S1/S2; Negative Murmur
GI: Soft, Nontender, Nondistended and Normal Bowel Sounds
Musculoskeletal: No Clubbing, No Cyanosis and No Edema
Neuro: Awake
[2024-12-22] MEDS: LASIX IV (11:08)
--- NOTE | 2024-12-22 11:13 | W.PN.CARDCBS ---
Addendum entered and electronically signed by Mary Sidhu MD 12/22/24 13:44:
Cost is acceptable for them to proceed with Entresto and Farxiga. Orders placed. Parameters on Entresto also placed.
Dose of potassium given
EKG noted consistent with evolving NE
Reassess EKG in the morning.
Original Note:
Today's Communication / Plan
-
Continue usual postprocedure cardiac cath care in the setting of acute NE.
Guideline directed medical therapy for heart failure with reduced ejection fraction. Lasix on hold but will need to be resumed.
Awaiting case management regarding cost of Entresto and Jardiance/Farxiga. If acceptable will proceed.
Caution with GDMT given low blood pressure. Reassess later today
EKG ordered
Telemetry independently reviewed by me with short runs of NSVT. Follow. On beta-nilo.
Carotid ultrasound ordered.
Impression / Plan
-
Primary Store Shopper: none prior to admission
Assessment:
Presentation with SOB
Cardiogenic shock with acute CHF with reduced ejection fraction
Acute ST elevation myocardial infarction
Peak troponin 16.9
Cardiac cath 12/20/2024 IVUS guided intracoronary lithotripsy (shockwave 3.5 x 12 lithotripsy balloon) and PCI (Medtronic [place] 3.5 x 34 TERA)
Acute hypoxic respiratory failure, required bipap on arrival
Lactic acidosis in the setting of cardiogenic shock, improving
Aortic valve stenosis mild
Hyperglycemia with normal hemoglobin A1c
Anemia�history of hemorrhoids which have been active
HLD
Anxiety
Tobacco use
Carotid bruit bilateral
ECHO 12/21/24: Normal LV size. Mild LVH. Segmental wall motion abnormality with hypokinesis in the LAD distribution and also inferior basal wall akinesis. Ejection fraction 35%. Normal RV. Mild aortic valve stenosis with peak/mean gradient 13/8
mmHg. Trace TR with PA pressure 40 to 45 mmHg. Mild MR.
Cardiac cath 12/20/2024:
HEMODYNAMIC DATA
PCWP (a/v/x, mmHg): 28/28/24
PA (s/d/x, mmHg): 40/25/30
RV (s/x, mmHg): 40/8
MAGDALENE
CO (L/min): 4.35
CI (L/min/m2): 2.31
-Right dominant circulation with chronic total occlusion of the proximal RCA supplied by collaterals of the LAD and circumflex
-Moderate diffuse disease throughout the entire left main with dampening on catheter engagement, likely due to angulation, a 40% ostial LAD lesion, a 40% ostial circumflex lesion and a densely calcified 80% lesion in the proximal LAD spanning the
origin of at least one of the diagonals and extending into the mid LAD
-Status post successful IVUS guided intracoronary lithotripsy (shockwave 3.5 x 12 lithotripsy balloon) and PCI (Medtronic [place] 3.5 x 34 TERA, postdilated with a 3.5 NC balloon) with reduction in stenosis to 0%, maintaining TAYLOR-3 flow.
-Left ventricular ejection fraction estimated at 20-25%.
Plan:
- Patient presented to ER with shortness of breath cardiogenic shock initially hypoxic and requiring BiPAP. ST elevation myocardial infarction noted. Patient proceeded to cardiac Drying Oven Tender and underwent LAD intervention.
IVUS guided intracoronary lithotripsy (shockwave 3.5 x 12 lithotripsy balloon) and PCI (Medtronic [place] 3.5 x 34 TERA)
RCA supplied by collaterals totally occluded.
Continue usual postintervention care with dual antiplatelet therapy
Aggressive risk factor modification
Cardiac rehab
-Heart failure with reduced ejection fraction by echo 35% (V gram 20 to 25%). Initial proBNP 5760.
She has been undergoing diuresis with IV lasix hold for now given low blood pressure this morning.
Cr stable.
Started on spironolactone and carvedilol
Awaiting case management regarding cost of Entresto and Jardiance/Farxiga. If acceptable will proceed. If not we will start lisinopril. Caution with GDMT given low blood pressure. Reassess later today.
Likely resume dosing of Lasix tomorrow
CHF education
EKG ordered
Telemetry independently reviewed by me with short runs of NSVT. Follow. On beta-nilo. Caution with beta-nilo given tobacco use history and some expiratory wheezing
-Tobacco use smoking cessation is mandatory
-Anemia in the setting of active hemorrhoids defer to primary service
-Carotid bruits versus transmitted murmur on exam. Carotid ultrasound ordered.
Discussed with nursing, discussed with patient and daughter at the bedside.
I spent 50 minutes [id number] and [id number] time in discussion, review of records and coordinating care. I did speak with hospitalist physician regarding patient in addition.
Progress Note - Store Shopper
Subjective
Date of Service: December 22, 2024
She denies chest pain and palpitations. She denies shortness of breath but has not been out of bed yet.
Objective
Labs:
12/22/24 03:20
12/22/24 03:20
Labs
Hgb 9.4 g/dL (12.0-16.0) L 12/22/24 03:20
Hct 26.5 % (37.0-47.0) L 12/22/24 03:20
Plt Count 238 10^3/uL (130-400) 12/22/24 03:20
APTT 51.7 Sec (23.4-35.0) H 12/21/24 11:37
Sodium 135 mmol/L (135-145) 12/22/24 03:20
Potassium 3.6 mmol/L (3.5-5.1) 12/22/24 03:20
BUN 21 mg/dl (7-17) H 12/22/24 03:20
Creatinine 0.8 mg/dL (0.6-1.0) 12/22/24 03:20
Glucose 114 mg/dl (70-99) H 12/22/24 03:20
Troponins
12/20/24 12/20/24 12/21/24
19:51 22:07 05:12
Troponin I 0.045 H* 0.716 H* D 16.900 H* D
12/21/24 12/21/24 12/22/24
11:37 19:22 03:20
Troponin I 14.100 H* 13.500 H* 12.700 H*
Vital Signs and I&O:
Vital Signs
Temp Pulse Resp BP Pulse Ox
98.8 F 91 20 122/63 91
12/22/24 06:50 12/22/24 09:01 12/22/24 06:50 12/22/24 09:01 12/22/24 06:50
Vital Signs
Temp Pulse Resp BP Pulse Ox
98.8 F 91 20 122/63 91
12/22/24 06:50 12/22/24 09:01 12/22/24 06:50 12/22/24 09:01 12/22/24 06:50
Intake & Output
12/20/24 12/21/24 12/22/24 12/23/24
06:59 06:59 06:59 06:59
Intake Total 472 / 484 1190 / 1190
Output Total 550 / 550 2810 / 2810
Balance -78 / -66 -1620 / -1620
Physical Exam
Physical Exam
General: Well developed, well nourished in NAD.
Heart: Non displaced PMI, RRR, 2/6 basal systolic murmur, No S3, S4, no rubs.
Lungs: Crackles at the bases bilaterally with bilateral soft wheezes at expiration
Extremities: No clubbing, cyanosis or edema bilaterally.
Neuro: Grossly nonfocal, awake, alert and oriented x3.
--- NOTE | 2024-12-22 11:24 | CM ---
priced meds with pts perscrip plan- [facility] [phone]. her pharmacy is closed today, we have no insur card on record.
entresto BID- first month- $615.71- of that $585 is going toward her deductible- after that she pays 24% of the cost of the med approx $170 mo
Farxiga 10 mg Qd- first month is $590 (of that 585 is her deductible) then she pays 24% cost- $147/mo
Jardiance 10 mg qd- first month $597 ( of that 585 is her deductible) then she pays 24% of the cost- $ 152/m
until she pays total of $2000 for the year then it goes to catastrophic and then everything ios covered. i also explained she can call her perscroip plan and get opn a monthly plan to pay the $2000
--she only pays the deductible once/on one med
called pt in room, spoke to syed armas, and explained above. they are agreeable to entresto and farxiga. cm to give 30 day free coupons tomorrow.
pt also informed that she will need to give the nurse her insur card to copy and send to admissions.
[2024-12-22 12:57] LABS: Glucose - Point of Care 138 mg/dl (70-99)
[2024-12-22 16:49] LABS: Glucose - Point of Care 121 mg/dl (70-99)
[2024-12-22] MEDS: LIPITOR 80 MG PO (17:07)
[2024-12-22] MEDS: ENTRESTO 24 MG/26 MG 1 TAB PO (19:25)
[2024-12-22] MEDS: FLUSH (NSS) 1 FLUSH IV (19:26)
[2024-12-22 21:28] LABS: Glucose - Point of Care 132 mg/dl (70-99)
[2024-12-22] MEDS: KCL 20 MEQ PO (22:31)
--- NOTE | 2024-12-22 22:45 | PTCARENOTE ---
Received pt at change of shift resting in bed. NSR in the 80's on the monitor. Right radial and right brachial cath site dressings removed @ 2009. Brachial site slightly ecchymotic. Left open to air. Pt denies any pain or SOB. Calls appropriately.
Call pitts within reach.
[2024-12-23 04:45] VITALS: BP 131/60
[2024-12-23 04:55] VITALS: BMI 27.1
[2024-12-23 05:05] LABS: Hematocrit 26.6 % (37.0-47.0); Hemoglobin 9.5 g/dL (12.0-16.0); Mean Corp Hgb Conc. 35.7 g/dL (33.0-37.0); Mean Corpuscular Hgb 31.3 pg (27.0-31.0); Mean Corpuscular Volume 87.5 fL (81.0-99.0); Mean Platelet Volume 10.8 fL (7.4-10.4); Platelet Count 228 10^3/uL (130-400); Red Blood Cell Count 3.04 10^6/uL (4.20-5.40)
[2024-12-23 05:31] LABS: Blood Urea Nitrogen 20 mg/dl (7-17); Calcium 9.1 mg/dl (8.4-10.2); Carbon Dioxide 25 mmol/L (22-30); Chloride 105 mmol/L (98-107); Estimated Creatinine Clearance 65 ml/min; Glucose 117 mg/dl (70-99); Sodium 135 mmol/L (135-145); eGFR > 60.00
[2024-12-23] MEDS: XANAX 0.25 MG PO ×2 (07:15→13:27)
[2024-12-23 07:16] VITALS: BP 123/74
[2024-12-23 07:53] LABS: Glucose - Point of Care 131 mg/dl (70-99)
[2024-12-23] MEDS: NOVOLOG FLEXPEN-LOW RESISTANCE SC ×2 (08:32→12:23)
[2024-12-23] MEDS: FARXIGA 10 MG PO (08:42)
[2024-12-23] MEDS: COREG 3.125 MG PO (08:42)
[2024-12-23] MEDS: ENTRESTO 24 MG/26 MG 1 TAB PO (08:42)
[2024-12-23] MEDS: ALDACTONE 12.5 MG PO (08:42)
[2024-12-23] MEDS: BRILINTA 90 MG PO (08:42)
[2024-12-23] MEDS: LOW STRENGTH ASPIRIN 81 MG PO (08:43)
[2024-12-23 08:44] VITALS: BP 119/55
[2024-12-23 09:20] LABS: ACT-LR - POC > 397 Seconds (116-155)
[2024-12-23 09:24] LABS: ACT-LR - POC 297 Seconds (116-155)
--- NOTE | 2024-12-23 09:38 | W.PN.CARDCBS ---
Addendum entered and electronically signed by Mary Sidhu MD 12/23/24 10:46:
I saw and examined the patient.
The Sander Hand's note was reviewed and I agree with the note.
Comment: Spoke at the bedside with the patient and her daughter. She is walking around the room without difficulty. She denies chest pain and shortness of breath. She is status postacute anterior wall AL and intervention of LAD as previously
described with total occlusion and collaterals right coronary artery. She has ischemic cardiomyopathy with ejection fraction approximately 35% (20�25% BiV gram). Continue post AL/postcardiac catheterization care. Continue guideline directed
medical treatment for heart failure with reduced ejection fraction. This was just added to the patient's regimen. She had initially presented in cardiogenic shock.
Plan at this time:
- Dual antiplatelet therapy
- Continue lipid-lowering
- Guideline directed medical therapy for heart failure with reduced ejection fraction which was just started
- Labs next week including BMP and proBNP
- Cardiac rehab
- Carotid ultrasound pending given carotid bruit, aggressive risk factor modification
-Smoking cessation
-Low-dose Lasix on discharge with close follow-up
If ambulates well, testing completed and rehab and heart failure team have seen and evaluated patient she may be discharged today if stable. Follow-up is being arranged. Given low ejection fraction she understands she will need 40-day
echocardiogram to risk stratify for sudden . EKG and telemetry monitors independently reviewed by me stable today.
I have spent 51 minutes svyi-le-xema and qlu-dyvm-hn-face time in discussion and review of records.
Original Note:
Today's Communication / Plan
-
Continue DAPT with aspirin, Brilinta
Continue Entresto, carvedilol, spironolactone, and Farxiga
Will transition to PO lasix 20mg daily
Follow up BMP, proBNP in 1 week
Follow up echo at 40 day shelia
CHF education
Follow up arranged
Impression / Plan
-
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 Mary Sidhu
Assessment:
Presented with SOB
Cardiogenic shock
Acute HFrEF
Acute STEMI
Peak troponin 16.9
CAD
s/p IVUS guided intracoronary lithotripsy (shockwave 3.5 x 12 lithotripsy balloon) and PCI (Medtronic Ady [place] 3.5 x 34 TERA) of LAD 12/20/2024
Acute hypoxic respiratory failure, required bipap on arrival
Lactic acidosis in the setting of cardiogenic shock, improving
Aortic stenosis, mild
Hyperglycemia with normal hemoglobin A1c
Anemia�history of hemorrhoids which have been active
HLD
Anxiety
Tobacco use
b/l carotid bruit
ECHO 12/21/24: Normal LV size. Mild LVH. Segmental wall motion abnormality with hypokinesis in the LAD distribution and also inferior basal wall akinesis. Ejection fraction 35%. Normal RV. Mild aortic valve stenosis with peak/mean gradient 13/8
mmHg. Trace TR with PA pressure 40 to 45 mmHg. Mild MR.
[facility] 12/20/2024: LM: mild to moderate disease throughout. LAD: 40% lesion ostium followed by densely calcified 80% lesion which spans the origin of at least one of the diagonals. Dense luminal irregularities throughotu the remainder of the vessel.
LCx: luminal irregularities throughout the entire vessel including a 40% lesion in the ostium. RCA: [employer] at origin, robustly collateralized by LAD and LCx. Intervention: Successful intracoronary lithotripsy of the 80% proximal LAD lesion. s/p PCI of
the 80% proximal LAD lesion extending into the mid LAD w/ Medtronic Ady [place] 3.5 x 34 mm TERA. CI 2.31.
Plan:
-Presented with SOB and cardiogenic shock. ST elevation AL noted, underwent [facility] 12/20 and had lithotripsy and PCI to LAD as noted above.
-Continue DAPT with aspirin, Brilinta. Hgb stable at 9.5 with Plt 228.
-Echo 12/21 noted reduced EF of 35%.
-Continue medical therapy with Entresto, carvedilol, spironolactone, and Farxiga. All new this admission. Appreciate CM assessing cost, family/patient agreeable.
-Will repeat echo at the 40 day shelia to reassess.
-Diuresed with IV lasix 40mg BID. Weight down at least 6lbs this admission, down to 167 lbs on 12/23. Creat stable at 0.7.
-Will transition to PO lasix 20mg daily. Follow daily weights.
-Check BMP and proBNP as OP in 1 week.
-CHF education
-Cardiac rehab c/s
-Carotid bruit noted b/l. Carotid US pending 12/23.
-Discussed importance of smoking cessation.
-LDL 163, new to lipitor 80mg daily.
-Follow up arranged.
Progress Note - Letter Sorting Machine Operator
Subjective
Date of Service: December 23, 2024
Feeling well. No complaints.
Objective
Labs:
12/23/24 04:50
12/23/24 04:50
Labs
Hgb 9.5 g/dL (12.0-16.0) L 12/23/24 04:50
Hct 26.6 % (37.0-47.0) L 12/23/24 04:50
Plt Count 228 10^3/uL (130-400) 12/23/24 04:50
APTT 51.7 Sec (23.4-35.0) H 12/21/24 11:37
Sodium 135 mmol/L (135-145) 12/23/24 04:50
Potassium 4.0 mmol/L (3.5-5.1) 12/23/24 04:50
BUN 20 mg/dl (7-17) H 12/23/24 04:50
Creatinine 0.7 mg/dL (0.6-1.0) 12/23/24 04:50
Glucose 117 mg/dl (70-99) H 12/23/24 04:50
Troponins
12/20/24 12/20/24 12/21/24
19:51 22:07 05:12
Troponin I 0.045 H* 0.716 H* D 16.900 H* D
12/21/24 12/21/24 12/22/24
11:37 19:22 03:20
Troponin I 14.100 H* 13.500 H* 12.700 H*
Vital Signs and I&O:
Vital Signs
Temp Pulse Resp BP Pulse Ox
98.7 F 87 18 119/55 95
12/23/24 07:17 12/23/24 08:44 12/23/24 07:17 12/23/24 08:44 12/23/24 07:16
Vital Signs
Temp Pulse Resp BP Pulse Ox
98.7 F 87 18 119/55 95
12/23/24 07:17 12/23/24 08:44 12/23/24 07:17 12/23/24 08:44 12/23/24 07:16
Intake & Output
12/21/24 12/22/24 12/23/24 12/24/24
06:59 06:59 06:59 06:59
Intake Total 472 / 484 1190 / 1190
Output Total 550 / 550 2810 / 2810
Balance -78 / -66 -1620 / -1620
Physical Exam
Physical Exam
GEN: No distress, awake, alert, oriented x3
HEENT: supple, anicteric, mmm
LUNGS: CTA b/l, no wheezes/rales
CV: Reg, S1/S2, 2/6 syst murmur
EXT: No clubbing, cyanosis, or edema
NEURO: Gross non-focal
SKIN: Warm, dry, no rash
--- NOTE | 2024-12-23 10:43 | CM ---
Addendum entered by Alexandra Hollingsworth 12/23/24 12:40:
Asked to check on the co-pay for Brilinta 90 mg po bid. Her co-pay for Brilinta 90 mg po bid first month would be $ 468.52. After she meets her deductible her co-pay would be $24% of the cost of the medication. Approx. $125.00 a month. After she
meets her out of pocket cost of $2000.00 her co-pay would be zero. Telephone call to [facility] to check if Brilinta 90 mg po bid in stock. [facility] does not have Brilinta in stock. Telephone call to [facility] at [facility] to see if they have
Brilinta in stock and they have it in stock. Reviewed co-pay and medications at [facility]. She is agreeable to having her mediations sent to [facility]. Updated the resident regarding above.
Original Note:
Reviewed chart. Mrs. Apple was transferred to IVU. Met with Mrs. Apple and her daughter to review discharge plans. She states she is feeling well and maybe able to go home soon. She states prior to admission she resides alone in a second floor
walk-up condo. She states she has a one level living once inside the condo. She states prior to admission she was independent with ambulation and adls. She states she does not have any DME in the home. She states she has a prescription plan and
uses [facility]. Placed the one month free coupon of Farxiga and Entresto in her red discharge folder. She states she is ambulating okay in the room. Medical work-up in progress. The discharge plan is to return home when medically stable.
[2024-12-23] MEDS: LASIX 20 MG PO (11:14)
[2024-12-23 11:16] VITALS: BP 109/57
[2024-12-23] MEDS: IMODIUM 2 MG PO (11:26)
[2024-12-23 11:37] VITALS: BP 109/50
--- NOTE | 2024-12-23 12:14 | W.PN.HOSP.TC ---
Addendum entered and electronically signed by Romina Faustin MD 12/23/24 15:21:
total DC time 37 min
Addendum entered and electronically signed by Romina Faustin MD 12/23/24 13:13:
I saw and evaluated the patient. I reviewed the resident�s note and agree with findings and plan as documented in the resident�s note.
A/P:
# ACS/STEMI (EKG with ST elevations in V1,V2)
troponins peaked at 16.9
stopped IV heparin
LHC showed Right dominant circulation with chronic total occlusion of the proximal RCA supplied by collaterals of the LAD and circumflex, moderate diffuse disease throughout the entire left main with dampening on catheter engagement, likely due to
angulation, a 40% ostial LAD lesion, a 40% ostial circumflex lesion and a densely calcified 80% lesion in the proximal LAD spanning the origin of at least one of the diagonals and extending into the mid LAD, status post successful IVUS guided
intracoronary lithotripsy (shockwave 3.5 x 12 lithotripsy balloon) and PCI (Medtronic [place] 3.5 x 34 TERA, postdilated with a 3.5 NC balloon) with reduction in stenosis to 0%
Cont ASA/Brilinta, high dose statin, coreg
# HLD
T chol 232, LDL 163
started statin
# lactic acidosis likely due to poor perfusion--do NOT believe septic or infected
# leukocytosis likely reactive, resolved
# anxiety--cont xanax
Dispo: DC home with
Original Note:
Today's Communication/Plan
-
Discharge planning today
Dispo medications:
plan to discharge on Brilinta, aspirin, high intensity atorvastatin, Entresto, carvedilol, Aldactone.
CM to check Brilinta cost
Follow-up with outpatient cardiology
Follow-up with your primary care physician
Assessment / Plan
Assessment / Plan
Impression
Hypoxic respiratory distress
Acute anteroseptal ID
Hyperlipidemia
Lactic acidosis
Hyperglycemia
Anxiety
Assessment and plan
Hypoxic respiratory distress --resolved
On room air
suspect new onset CHF.
EF visually 35% but 20-25% via cath
Acute anteroseptal ID
S/p left heart cath with successful PCI of LAD and circumflex
Carotid ultrasound shows estimated stenosis of at least 50-69% within proximal right and left ICA.
Plan for discharge today
GDMT therapy, plan to discharge on Brilinta, aspirin, high intensity atorvastatin, Entresto, carvedilol, Aldactone.
Continue 20 mg p.o. Lasix at home
Follow-up with outpatient cardiology
Left heart catheterization: right dominant circulation with chronic total occlusion of the proximal RCA supplied by collaterals of the LAD and circumflex, moderate diffuse disease throughout the entire left main with dampening on catheter
engagement, likely due to angulation, a 40% ostial LAD lesion, a 40% ostial circumflex lesion and a densely calcified 80% lesion in the proximal LAD spanning the origin of at least one of the diagonals and extending into the mid LAD, status post
successful IVUS guided intracoronary lithotripsy (shockwave 3.5 x 12 lithotripsy balloon) and PCI (Medtronic Ady [place] 3.5 x 34 TERA, postdilated with a 3.5 NC balloon) with reduction in stenosis to 0%.
HLD
Continue high intensity atorvastatin
Lactic acidosis likely due to poor perfusion--resolved
do NOT believe septic or infected--no ABX--leukocytosis likely reactive
Hyperglycemia-- no hx of DM--HGB A1C 5.1--SSI
anxiety--cont xanax
DVT proph--off heparin drip
code status-- FULL CODE
Carotid ultrasound
Anticipated Discharge: Today
Subjective/Interval History
-
Date of Service: December 23, 2024
No overnight events
Objective Data
-
Labs:
Laboratory Results
12/23/24
04:50
WBC 8.0
Hgb 9.5 L
Hct 26.6 L
Plt Count 228
Sodium 135
Potassium 4.0
Chloride 105
Carbon Dioxide 25
BUN 20 H
Creatinine 0.7
Glucose 117 H
Calcium 9.1
Vital Signs:
Vital Signs
Temp Pulse Resp BP Pulse Ox
98.6 F 80 20 109/57 96
12/23/24 11:42 12/23/24 11:14 12/23/24 11:42 12/23/24 11:14 12/23/24 11:42
I&O
12/22/24 12/23/24 12/24/24
06:59 06:59 06:59
Intake Total 1190 / 1190
Output Total 2810 / 2810
Balance -1620 / -1620
Review of Systems
-
All other systems: Reviewed and negative
Physical Exam
-
General: No Apparent Distress and Comfortable
HEENT: Normocephalic and Atraumatic
Respiratory: Clear to Auscultation
Cardiac: Regular Rhythm and S1/S2
GI: Soft, Nontender and Nondistended
Musculoskeletal: No Edema
Neuro: AO x 3
Psych: Calm
Data Reviewed
-
Labs: Labs Reviewed by me and Discussed with Physician
[2024-12-23 12:15] LABS: Glucose - Point of Care 119 mg/dl (70-99)
--- NOTE | 2024-12-23 13:11 | PTCARENOTE ---
Pt ambulated in escobar, denies dizziness. Pulse ox on RA 97-99%. Dr. Sidhu made aware.
[2024-12-23 14:43] VITALS: BP 110/55
--- NOTE | 2024-12-23 14:50 | W.DCSUMMARY ---
Documented by User: Ghislaine Griffin MD, Resident 12/23/24 15:06
Discharge Summary
Discharge Data
Date of Admission: 12/20/24
Date of Discharge: 12/23/24
-
Pending Results: No
Hospital Course
Discharging Physician : Dr Ghislaine Griffin, Dr Ramin Vanegas. H
Disposition : Home
Primary care physician : Desmond Salas Jr.
Principal Discharge diagnosis :
Acute anteroseptal DC s/p left heart cath with successful PCI of LAD
Heart failure with reduced ejection fraction
Hyperlipidemia
Chronic Discharge diagnosis :
Anxiety
Hospital Course : 74-year-old female presented with shortness of breath. In the ED troponin was [address] segment changes/elevations on V1, V2 noted on the EKG. Patient urgently had echocardiogram which showed ejection fraction of 35%, she was
immediately taken for left heart catheterization, found to have a EF of 20 - 25%. Patient had successful PCI of proximal LAD. Denies chest pain, shortness of breath post cath. Guideline medical directed therapy initiated for heart failure with
reduced ejection fraction. At discharge, patient will continue dual antiplatelet therapy(Brilinta/aspirin ) , high-dose of atorvastatin, Entresto, Aldactone, Coreg.
Important imaging findings :
12/20/24 Chest x-ray- Diffuse interstitial opacification with mid/lower lung prominent patchy airspace opacities favored to represent severe pulmonary edema, less likely multifocal pneumonia.
12/20/[address]-
1. No evidence of pulmonary embolism.
2. There are small bilateral pleural effusions, more pronounced on the right. There is ground glass opacities with interlobular septal thickening and areas of confluent airspace disease which is favored to represent severe atelectasis/edema, less
likely multifocal pneumonia.
3. Moderate coronary artery calcifications
12/23/24 Vascular ultrasound
Right carotid: Calcified and noncalcified plaque within the proximal ICA with elevated velocities measuring up to 290 cm/s. End-diastolic velocity measures 47 cm/s. ICA/CCA ratio 2.20. Findings consistent with estimated stenosis of at least 50-69%.
Secondary parameters do not support a greater than 70% stenosis.
Left carotid: Calcified and noncalcified plaque within the proximal ICA with elevated velocities measuring up to 399 cm/s. End-diastolic velocity measures 77 cm/s. ICA/CCA ratio 3.41. Findings consistent with estimated stenosis of at least 50-69%,
though likely approaching the 70% threshold.
Antegrade flow within both vertebral arteries.
Procedure findings :
12/21/24 Left heart catheterization :
CONCLUSIONS:
1. Right dominant circulation with chronic total occlusion of the proximal RCA supplied by collaterals of the LAD and circumflex, moderate diffuse disease throughout the entire left main with dampening on catheter engagement, likely due to
angulation, a 40% ostial LAD lesion, a 40% ostial circumflex lesion and a densely calcified 80% lesion in the proximal LAD spanning the origin of at least one of the diagonals and extending into the mid LAD, status post successful IVUS guided
intracoronary lithotripsy (shockwave 3.5 x 12 lithotripsy balloon) and PCI ([employer] [place] 3.5 x 34 TERA, postdilated with a 3.5 NC balloon) with reduction in stenosis to 0%, maintaining TAYLOR-3 flow.
2. Mild to moderate left ventricular dilation with severe hypokinesis of the entire myocardium with the exception of the anterior base and dyskinesis of the apex with severely reduced systolic function. Left ventricular ejection fraction estimated
at 20-25%.
3. Severely elevated filling pressures (LVEDP = 24 mmHg, PCWP = 24 mmHg at 78.5 kg) with evidence of diastolic dysfunction (A wave to 38 mmHg).
4. Preserved cardiac index (2.31 L/min/m�).
5. Mild postcapillary pulmonary hypertension (mean PA = 30 mmHg, PCWP = 24 mmHg, CO = 4.35 L/min, PVR = 1.38 Haji units), WHO group 2.
Discharge Plan
-
Patient Disposition: Home (Routine Discharge)
Discharge Diagnosis/Procedures: Acute ST segment elevation myocardial infarction;
new heart failure with reduced ejection fraction;
S/P lithotripsy with angioplasty and stent to Left Anterior Descending artery
Condition: Good
Diet: 2 Gram Sodium and Restrict fluids to 48 oz
Activity: As tolerated
Driving Restrictions: As prior to admission
Bathing Restrictions: None
Other Services: Cardiac Rehab
Stand Alone Forms: DC Instructions- Cath/EP Lab
Referrals:
[facility] [Outside]
(Cardiac Rehab Orientation and� First Exercise appointment is on January 21 at 1:00.
The Cardiac Rehab gym is located on the first floor of the [facility].)
Deanna Chowdhury PA-C [Specified Professional Personl] - 01/08/25 10:40 am (Cardiology followup appointment)
Sarbjit Medrano MD [Active] - (Call Dr. Medrano's office to arrange follow up to discuss carotid stenosis. )
Desmond Salas Jr., DO [Family Provider] - in less than 1 week
Additional Discharge Medication Instructions: Acute anteroseptal DC/ST elevation
Start taking atorvastatin 80 mg 1 tablet daily--acute STEMI
Start taking carvedilol 3.125 mg 1 tablet twice daily--acute STEMI
Start taking Entresto 1 tablet twice daily--acute STEMI
Start taking Aldactone 25 mg 1 tablet daily--acute STEMI
Start taking Brilinta 90 mg 1 tablet twice daily--acute STEMI, to prevent restenosis
Start taking aspirin 81 mg 1 tablet daily--- acute STEMI, to prevent restenosis
Follow-up with outpatient cardiology
Follow-up with outpatient primary care physician
Prescriptions:
New
ticagrelor [Brilinta] 90 mg Tablet
90 mg PO BID 30 Days Qty: 60 0RF
Entresto 24-26 mg Tablet
1 tab PO BID Qty: 30 0RF
spironolactone 25 mg Tablet
12.5 mg PO DAILY Qty: 30 0RF
carvedilol 3.125 mg Tablet
3.125 mg PO BID Qty: 30 0RF
dapagliflozin propanediol 10 mg Tablet
10 mg PO DAILY Qty: 30 0RF
atorvastatin 80 mg Tablet
80 mg PO QPM Qty: 30 0RF
aspirin 81 mg Tablet,Chewable
81 mg PO DAILY Qty: 30 0RF
furosemide 20 mg Tablet
20 mg PO DAILY Qty: 30 0RF
Continued
alprazolam [Xanax] 0.25 mg Tablet
0.25 mg PO TID PRN (Reason: anxiety)
Discharge Orders:
Discharge Patient (As Directed); Ordered 12/23/24
Ordered By: Ghislaine Griffin
Care Plan Goals
Care Plan Goals:
Problem: Readiness for enhanced knowledge related to diagnosis and treatment plan
Goal: Understand your diagnosis and treatment plan needs, including medications if applicable.
Instructions: Know your diagnosis, underlying causes and treatment plan options, including medications if applicable. Consult with your health care team to learn about your diagnosis and treatment plan, including medications if applicable.
Discharge Date and Time
Print Language: TANZANIAN

Documented by User: Romina Faustin MD 12/23/24 15:20
Discharge Summary
Discharge Data
Date of Admission: 12/20/24
Date of Discharge: 12/23/24
Hospital Course
Discharging Physician : Dr Ghislaine Griffin, Dr Ramin Vanegas. H
Disposition : Home
Primary care physician : Desmodn Salas Jr.
Principal Discharge diagnosis :
Acute anteroseptal DC s/p left heart cath with successful PCI of LAD
Heart failure with reduced ejection fraction
Hyperlipidemia
Chronic Discharge diagnosis :
Anxiety
Hospital Course : 74-year-old female presented with shortness of breath. In the ED troponin was [address] segment changes/elevations on V1, V2 noted on the EKG. Patient urgently had echocardiogram which showed ejection fraction of 35%, she was
immediately taken for left heart catheterization, found to have a EF of 20 - 25%. Patient had successful PCI of proximal LAD. Guideline medical directed therapy initiated for heart failure with reduced ejection fraction. At discharge, patient
will continue dual antiplatelet therapy (Brilinta/aspirin ), high-dose of atorvastatin, Entresto, Aldactone, Coreg.
Important imaging findings :
12/20/24 Chest x-ray- Diffuse interstitial opacification with mid/lower lung prominent patchy airspace opacities favored to represent severe pulmonary edema, less likely multifocal pneumonia.
12/20/[address]-
1. No evidence of pulmonary embolism.
2. There are small bilateral pleural effusions, more pronounced on the right. There is ground glass opacities with interlobular septal thickening and areas of confluent airspace disease which is favored to represent severe atelectasis/edema, less
likely multifocal pneumonia.
3. Moderate coronary artery calcifications
12/23/24 Vascular ultrasound
Right carotid: Calcified and noncalcified plaque within the proximal ICA with elevated velocities measuring up to 290 cm/s. End-diastolic velocity measures 47 cm/s. ICA/CCA ratio 2.20. Findings consistent with estimated stenosis of at least 50-69%.
Secondary parameters do not support a greater than 70% stenosis.
Left carotid: Calcified and noncalcified plaque within the proximal ICA with elevated velocities measuring up to 399 cm/s. End-diastolic velocity measures 77 cm/s. ICA/CCA ratio 3.41. Findings consistent with estimated stenosis of at least 50-69%,
though likely approaching the 70% threshold.
Antegrade flow within both vertebral arteries.
Procedure findings :
12/21/24 Left heart catheterization :
CONCLUSIONS:
1. Right dominant circulation with chronic total occlusion of the proximal RCA supplied by collaterals of the LAD and circumflex, moderate diffuse disease throughout the entire left main with dampening on catheter engagement, likely due to
angulation, a 40% ostial LAD lesion, a 40% ostial circumflex lesion and a densely calcified 80% lesion in the proximal LAD spanning the origin of at least one of the diagonals and extending into the mid LAD, status post successful IVUS guided
intracoronary lithotripsy (shockwave 3.5 x 12 lithotripsy balloon) and PCI ([employer]tronic [place] 3.5 x 34 TERA, postdilated with a 3.5 NC balloon) with reduction in stenosis to 0%, maintaining TAYLOR-3 flow.
2. Mild to moderate left ventricular dilation with severe hypokinesis of the entire myocardium with the exception of the anterior base and dyskinesis of the apex with severely reduced systolic function. Left ventricular ejection fraction estimated
at 20-25%.
3. Severely elevated filling pressures (LVEDP = 24 mmHg, PCWP = 24 mmHg at 78.5 kg) with evidence of diastolic dysfunction (A wave to 38 mmHg).
4. Preserved cardiac index (2.31 L/min/m�).
5. Mild postcapillary pulmonary hypertension (mean PA = 30 mmHg, PCWP = 24 mmHg, CO = 4.35 L/min, PVR = 1.38 Haji units), WHO group 2.
Discharge Plan
-
Patient Disposition: Home (Routine Discharge)
Discharge Diagnosis/Procedures: Acute ST segment elevation myocardial infarction;
new heart failure with reduced ejection fraction;
S/P lithotripsy with angioplasty and stent to Left Anterior Descending artery
Condition: Good
Diet: 2 Gram Sodium and Restrict fluids to 48 oz
Activity: As tolerated
Driving Restrictions: As prior to admission
Bathing Restrictions: None
Other Services: Cardiac Rehab
Stand Alone Forms: DC Instructions- Cath/EP Lab
Referrals:
[facility] [Outside]
(Cardiac Rehab Orientation and� First Exercise appointment is on January 21 at 1:00.
The Cardiac Rehab gym is located on the first floor of the [facility].)
Deanna Chowdhury PA-C [Specified Professional Personl] - 01/08/25 10:40 am (Cardiology followup appointment)
Sarbjit Medrano MD [Active] - (Call Dr. Medrano's office to arrange follow up to discuss carotid stenosis. )
Desmond Salas Jr., DO [Family Provider] - in less than 1 week
Additional Discharge Medication Instructions: Acute anteroseptal DC/ST elevation
Start taking atorvastatin 80 mg 1 tablet daily--acute STEMI
Start taking carvedilol 3.125 mg 1 tablet twice daily--acute STEMI
Start taking Entresto 1 tablet twice daily--acute STEMI
Start taking Aldactone 25 mg 1 tablet daily--acute STEMI
Start taking Brilinta 90 mg 1 tablet twice daily--acute STEMI, to prevent restenosis
Start taking aspirin 81 mg 1 tablet daily--- acute STEMI, to prevent restenosis
Follow-up with outpatient cardiology
Follow-up with outpatient primary care physician
Prescriptions:
New
ticagrelor [Brilinta] 90 mg Tablet
90 mg PO BID 30 Days Qty: 60 0RF
Entresto 24-26 mg Tablet
1 tab PO BID Qty: 30 0RF
spironolactone 25 mg Tablet
12.5 mg PO DAILY Qty: 30 0RF
carvedilol 3.125 mg Tablet
3.125 mg PO BID Qty: 30 0RF
dapagliflozin propanediol 10 mg Tablet
10 mg PO DAILY Qty: 30 0RF
atorvastatin 80 mg Tablet
80 mg PO QPM Qty: 30 0RF
aspirin 81 mg Tablet,Chewable
81 mg PO DAILY Qty: 30 0RF
furosemide 20 mg Tablet
20 mg PO DAILY Qty: 30 0RF
Continued
alprazolam [Xanax] 0.25 mg Tablet
0.25 mg PO TID PRN (Reason: anxiety)
Discharge Orders:
Discharge Patient (As Directed); Ordered 12/23/24
Ordered By: Ghislaine Griffin
Care Plan Goals
Care Plan Goals:
Problem: Readiness for enhanced knowledge related to diagnosis and treatment plan
Goal: Understand your diagnosis and treatment plan needs, including medications if applicable.
Instructions: Know your diagnosis, underlying causes and treatment plan options, including medications if applicable. Consult with your health care team to learn about your diagnosis and treatment plan, including medications if applicable.
Discharge Date and Time
Print Language: TANZANIAN
== END 2024-12-23 15:31 | disposition home or self-care (01) | DRG 323 ==
LOC: IVU 22:57
PROVIDERS: Internal Medicine; Internal Medicine Cardiovascular Disease; Nurse Practitioner Family; Student in an Organized Health Care Education/Training Program; ADMITTING PHYSICIAN Internal Medicine; ATTENDING PHYSICIAN Internal Medicine; EMERGENCY PHYSICIAN Emergency Medicine; FAMILY PHYSICIAN Family Medicine; OTHER PHYSICIAN Internal Medicine Cardiovascular Disease
PROC: 5A09357 Assistance with Respiratory Ventilation, Less than 24 Consecutive Hours, Continuous Positive Airway Pressure (ICD-10-PCS; 2024-12-20)
PROC: B241ZZ3 Ultrasonography of Multiple Coronary Arteries, Intravascular (ICD-10-PCS; 2024-12-21)
PROC: 027034Z Dilation of Coronary Artery, One Artery with Drug-eluting Intraluminal Device, Percutaneous Approach (ICD-10-PCS; 2024-12-21)
PROC: 02F03ZZ Fragmentation in Coronary Artery, One Artery, Percutaneous Approach (ICD-10-PCS; 2024-12-21)
PROC: B211YZZ Fluoroscopy of Multiple Coronary Arteries using Other Contrast (ICD-10-PCS; 2024-12-21)
PROC: B215YZZ Fluoroscopy of Left Heart using Other Contrast (ICD-10-PCS; 2024-12-21)
PROC: 4A023N8 Measurement of Cardiac Sampling and Pressure, Bilateral, Percutaneous Approach (ICD-10-PCS; 2024-12-21)
DX: I21.09 ST elevation (STEMI) myocardial infarction involving other coronary artery of anterior wall (principal); I50.21 Acute systolic (congestive) heart failure; R57.0 Cardiogenic shock; J96.01 Acute respiratory failure with hypoxia; E87.20 Acidosis, unspecified; I42.9 Cardiomyopathy, unspecified; E78.5 Hyperlipidemia, unspecified; I27.29 Other secondary pulmonary hypertension; I25.10 Atherosclerotic heart disease of native coronary artery without angina pectoris; F41.9 Anxiety disorder, unspecified; I35.0 Nonrheumatic aortic (valve) stenosis; F17.200 Nicotine dependence, unspecified, uncomplicated; D64.9 Anemia, unspecified; K64.9 Unspecified hemorrhoids; R73.9 Hyperglycemia, unspecified; Z79.02 Long term (current) use of antithrombotics/antiplatelets; Z79.82 Long term (current) use of aspirin; Z79.84 Long term (current) use of oral hypoglycemic drugs
CPT/HCPCS: 71045; 71275; 80048; 80053; 80061; 82607; 82728; 82746; 82962; 83036; 83540; 83550; 83605; 83735; 83880; 84100; 84145; 84439; 84443; 84484; 85025; 85027; 85045; 85347; 85730; 87040; 87502; 87811; 92972; 92978; 92979; 93005; 93306; 93460; 93880; 94640; 94644; 94660; 96374; 96375; 99152; 99153; 99291; C1725; C1753; C1761; C1769; C1874; C1894; C9606; Q9967

== ENCOUNTER → 2024-12-31 10:49 | Outpatient (REF) | payer MEDICARE, SELFPAY ==
[2024-12-31 15:46] LABS: Blood Urea Nitrogen 18 mg/dl (7-17); Calcium 9.2 mg/dl (8.4-10.2); Carbon Dioxide 26 mmol/L (22-30); Chloride 102 mmol/L (98-107); Glucose 112 mg/dl (70-99); Potassium 4.6 mmol/L (3.5-5.1); Sodium 137 mmol/L (135-145); eGFR > 60.00
[2024-12-31 15:56] LABS: NT-proBNP 2320 pg/ml
== END ==
LOC: HWLAB 10:49
PROVIDERS: ATTENDING PHYSICIAN Internal Medicine Cardiovascular Disease; FAMILY PHYSICIAN Family Medicine
DX: I50.20 Unspecified systolic (congestive) heart failure (principal)
CPT/HCPCS: 36415; 80048; 83880

== ENCOUNTER → 2025-01-20 09:13 | Outpatient (REF) | payer MEDICARE, SELFPAY ==
[2025-01-20 15:11] LABS: Blood Urea Nitrogen 38 mg/dl (7-17); Carbon Dioxide 22 mmol/L (22-30); Chloride 105 mmol/L (98-107); Glucose 123 mg/dl (70-99); Potassium 5.3 mmol/L (3.5-5.1); Sodium 133 mmol/L (135-145); eGFR 58.75
== END ==
LOC: HWLAB 09:13
PROVIDERS: ATTENDING PHYSICIAN Physician Assistant Medical; FAMILY PHYSICIAN Family Medicine
DX: I25.5 Ischemic cardiomyopathy (principal)
CPT/HCPCS: 36415; 80048

== ENCOUNTER → 2025-01-28 12:28 | Outpatient (REF) | payer MEDICARE, SELFPAY ==
[2025-01-28 15:56] LABS: Blood Urea Nitrogen 37 mg/dl (7-17); Calcium 8.9 mg/dl (8.4-10.2); Carbon Dioxide 25 mmol/L (22-30); Chloride 101 mmol/L (98-107); Glucose 129 mg/dl (70-99); Potassium 4.7 mmol/L (3.5-5.1); Sodium 132 mmol/L (135-145)
[2025-01-28 16:12] LABS: NT-proBNP 990 pg/ml
== END ==
LOC: HWLAB 12:28
PROVIDERS: ATTENDING PHYSICIAN Internal Medicine Cardiovascular Disease; FAMILY PHYSICIAN Family Medicine
DX: I50.20 Unspecified systolic (congestive) heart failure (principal)
CPT/HCPCS: 36415; 80048; 83880

== ENCOUNTER 2025-01-29 11:19 | Outpatient (RCR) | payer MEDICARE, SELFPAY | END 2025-01-29 23:59 | disposition home or self-care (01) | LOC: CRHB 11:19 | PROVIDERS: ATTENDING PHYSICIAN Internal Medicine Cardiovascular Disease | DX: I25.10 Atherosclerotic heart disease of native coronary artery without angina pectoris (principal); I21.4 Non-ST elevation (NSTEMI) myocardial infarction (principal); Z95.5 Presence of coronary angioplasty implant and graft; I25.2 Old myocardial infarction | CPT/HCPCS: G0422; G0423 ==

== ENCOUNTER → 2025-02-12 11:21 | Outpatient (REF) | payer MEDICARE, SELFPAY | LOC: HWRCS 11:21 | PROVIDERS: ATTENDING PHYSICIAN Physician Assistant Medical; FAMILY PHYSICIAN Family Medicine | DX: I25.5 Ischemic cardiomyopathy (principal); I50.20 Unspecified systolic (congestive) heart failure | CPT/HCPCS: 93306 ==

== ENCOUNTER → 2025-06-13 08:00 | Outpatient (REF) | payer MEDICARE, SELFPAY ==
[2025-06-13 10:03] LABS: Hematocrit 25.0 % (37.0-47.0); Hemoglobin 8.7 g/dL (12.0-16.0); Mean Corp Hgb Conc. 34.8 g/dL (33.0-37.0); Mean Corpuscular Volume 94.0 fL (81.0-99.0); Nucleated Red Blood Cells % 0 %; Platelet Count 271 10^3/uL (130-400); Red Cell Dist. Width 15.8 % (11.5-14.5)
[2025-06-13 10:26] LABS: ALT (SGPT) 23 U/L (0-35); AST (SGOT) 21 U/L (14-36); Albumin 3.9 g/dl (3.5-5.0); Alkaline Phosphatase 87 U/L (38-126); Blood Urea Nitrogen 24 mg/dl (7-17); Calcium 8.9 mg/dl (8.4-10.2); Carbon Dioxide 27 mmol/L (22-30); Chloride 105 mmol/L (98-107); Glucose 113 mg/dl (70-99); HDL Cholesterol 51 mg/dl; LDL Cholesterol, Calculated 52 mg/dl; Potassium 4.6 mmol/L (3.5-5.1); Sodium 138 mmol/L (135-145); Total Protein 6.3 g/dl (6.3-8.2); Very Low Density Lipoprotein 12 mg/dl (0-30); eGFR > 60.00
== END ==
LOC: HWLAB 08:00
PROVIDERS: ATTENDING PHYSICIAN Internal Medicine Cardiovascular Disease; FAMILY PHYSICIAN Family Medicine
DX: E78.5 Hyperlipidemia, unspecified (principal)
CPT/HCPCS: 36415; 80053; 80061; 85025

== ENCOUNTER → 2025-06-27 07:52 | Outpatient (REF) | payer MEDICARE, SELFPAY ==
[2025-06-27 10:15] LABS: Iron 92 ug/dl (37-170)
[2025-06-27 10:25] LABS: Total Iron Binding Capacity 345 ug/dl (265-497)
[2025-06-27 11:15] LABS: Ferritin 228.0 ng/ml (11.1-264.0)
== END ==
LOC: HWLAB 07:52
PROVIDERS: ATTENDING PHYSICIAN Family Medicine; REFERRING PHYSICIAN Internal Medicine Cardiovascular Disease
DX: E61.1 Iron deficiency (principal)
CPT/HCPCS: 36415; 82728; 83540; 83550